=== PATIENT | male | born 1995 | race Caucasian/White ===

== ENCOUNTER 2018-03-28 22:19 | Emergency (ER) | payer OTHER ==
[2018-03-28 22:28] VITALS: BP 123/78; PULSE 71; TEMP 98.4; BMI 29.6
--- NOTE | 2018-03-28 22:31 | PDOC ---
History of Present Illness - General Chief Complaint: Chest Pain Stated Complaint: CHEST PAIN Time Seen by Provider: 03/28/18 22:31 - History of Present Illness Initial Comments: 03/29/18 00:22 Patient is a 23 year old male with no reported PMH who presents to the ED c/o 5 day h/o chest pain. Pain is sharp, starts in his L axilla, and sometimes radiates down his L arm. Pain is worse at night and is intermittently associated with shortness of breath. Denies nausea, lightheadedness, palpitation. No previous h/o similar pain. No previous cardiac evaluation. No familial early deaths from cardiac causes, no familial cardiac history. Patient denies abdominal pain, diarrhea/constipation, nausea/vomiting, dysuria/ hematuria, recent travel, sick contacts. NKDA Surgical: denies Social: no toxic habits PMD: Dr. Andrea Bassett M.D. Past History - Past Medical History Allergies/Adverse Reactions: Allergies Allergy/AdvReac Type Severity Reaction Status Date / Time No Known Allergies Allergy Verified 03/28/18 22:27 Home Medications: Ambulatory Orders Clotrimazole [Lotrimin AF] 24 gm TP BID #1 cream..g. 04/29/16 COPD: No - Suicide/Smoking/Psychosocial Hx Smoking History: Never smoked Have you smoked in the past 12 months: No Information on smoking cessation initiated: No Hx Alcohol Use: No Drug/Substance Use Hx: No Substance Use Type: None *Physical Exam - Vital Signs Last Vital Signs Temp Pulse Resp BP Pulse Ox 98.4 F 71 18 123/78 98 03/28/18 22:24 03/28/18 22:24 03/28/18 22:24 03/28/18 22:24 03/28/18 22:24 - Physical Exam General Appearance: Yes: Nourished, Appropriately Dressed HEENT: positive: Normal Voice, Hearing Grossly Normal Neck: positive: Trachea midline, Supple Respiratory/Chest: positive: Lungs Clear, Normal Breath Sounds Cardiovascular: positive: S1, S2. negative: Edema, JVD Gastrointestinal/Abdominal: positive: Normal Bowel Sounds, Soft Musculoskeletal: negative: CVA Tenderness (R), CVA Tenderness (L) Extremity: positive: Normal Capillary Refill, Normal Inspection Integumentary: positive: Normal Color, Dry, Warm ED Treatment Course - LABORATORY CBC & Chemistry Diagram: 03/28/18 23:00 03/28/18 23:00 Medical Decision Making - Medical Decision Making 03/29/18 00:25 23 year old male with chest pain. EKG significant for diffuse epsilon waves -- possibly suggestive of AVRD . No other concerning findings including dagger Q waves, QT prolongation, ST elevations in V1-V3 Will obtain basic labs, cardiac profile. Reassess. 03/29/18 00:47 Troponin (-) x1. Normal Ca+ Will discharge home with return precautions and cardiology referral. *DC/Admit/Observation/Transfer Diagnosis at time of Disposition: Chest pain - Discharge Dispostion Disposition: HOME Condition at time of disposition: Good Decision to Admit order: No - Referrals Referrals: Andrea Bassett MD [Primary Care Provider] - Conrad Richardson MD [Staff Physician] - - Patient Instructions Printed Discharge Instructions: DI for Atypical Chest Pain Additional Instructions: You were evaluated for chest pain. Your labs showed no concerning findings. At this time you are safe for discharge. Your EKG which shows your heart's rhythm, showed some changes that should be evaluated by a tire vulcanizer. We have provided a referral. Please make an appointment for evaluation. Please also follow up with your primary care doctor , Dr. Bassett, in the next 2 days. Return to the Emergency Department for any new/worsening/concerning symptoms. - Post Discharge Activity
[2018-03-28 23:18] LABS: BASO % 0.7 % (0-2.0); HEMATOCRIT 45.6 % (35.4-49); HEMOGLOBIN 15.5 GM/dL (11.7-16.9); LYMPH % 31.5 % (8-40); MCH 29.4 pg (25.7-33.7); MCHC 33.9 g/dl (32.0-35.9); MEAN CELL VOLUME 86.7 fl (80-96); MEAN PLT VOLUME 10.1 fl (7.5-11.1); MONO % 6.9 % (3.8-10.2); NEUT % 59.9 % (42.8-82.8); PLATELET COUNT 252 K/MM3 (134-434); RBC 5.26 M/mm3 (4.00-5.60); RDW 13.3 % (11.9-15.9); WHITE BLOOD COUNT 7.5 K/mm3 (4.0-10.0)
[2018-03-29 00:17] LABS: ALBUMIN 3.7 g/dl (3.4-5.0); ALK PHOS 94 U/L (45-117); ANION GAP 7 MMOL/L (8-16); BILIRUBIN,TOTAL 0.3 mg/dL (0.2-1); BLOOD UREA NITROGEN 12 mg/dL (7-18); CALCIUM 8.5 mg/dL (8.5-10.1); CHLORIDE 106 mmol/L (98-107); CO2 28 mmol/L (21-32); CREATININE 1.3 mg/dL (0.55-1.3); GLUCOSE,RANDOM 74 mg/dL (74-106); N-TERMINAL BNP 7.7 pg/ml (5-125); POTASSIUM 3.6 mmol/L (3.5-5.1); SGOT/AST 29 U/L (15-37); SGPT/ALT 47 U/L (13-61); SODIUM 140 mmol/L (136-145); TOT PROT 7.1 g/dl (6.4-8.2)
--- NOTE | 2018-03-29 00:31 | PDOC ---
Attending Attestation - Resident Resident Name: Janell Moody - ED Attending Attestation I have performed the following: I have examined & evaluated the patient, The case was reviewed & discussed with the resident, I agree w/resident's findings & plan, Exceptions are as noted - HPI HPI: 03/29/18 00:28 23 M with no PMH presents to ED with intermittent L sided chest pain that began 4 days ago. Pt states the pain is in his L axilla and radiates down his L arm. Occasionally experiences SOB but denies it at the moment. No F/C. No recent travel/immobilization. No leg swelling. No smoking history or other drugs. No FH of early AL. - Physicial Exam PE: 03/29/18 00:30 GENERAL: Awake, alert, and fully oriented, in no acute distress. HEAD: No signs of trauma EYES: PERRLA, EOMI, sclera anicteric, conjunctiva clear ENT: Auricles normal inspection, hearing grossly normal, nares patent, oropharynx clear without exudates. Moist mucosa NECK: Nontender, no stepoffs, Normal ROM, supple, no lymphadenopathy, JVD, or masses LUNGS: Breath sounds equal, clear to auscultation bilaterally. No wheezes, and no crackles HEART: Regular rate and rhythm, normal S1 and S2, no murmurs, rubs or gallops ABDOMEN: Soft, nontender, normoactive bowel sounds. No guarding, no rebound. No masses EXTREMITIES: Normal range of motion, no edema. No clubbing or cyanosis. No cords, erythema, or tenderness NEUROLOGICAL: Cranial nerves II through XII intact. 5/5 strength and sensation in all extremities, Normal speech, normal gait, normal cerebellar function SKIN: Warm, Dry, normal turgor, no rashes or lesions noted. - Medical Decision Making 03/29/18 00:30 23 M with intermittent L axilla pain, currently asymptomatic. EKG nonischemic, though it shows ?dunham wave. Pt with normal temp. Will check for hypercalcemia. Also r/o ACS with single trop, as symptoms have been present for 4 days. Pt with no PE risk factors, PERC score 0. - Labs, trop - CXR Labs wnl, trop negative CXR clear on my read Pt reassessed - continues to be asymptomatic. Pt informed of EKG abnormality and understands need to f/u with cardiology. Pt is well appearing, with normal vitals. Clinically stable for DC at this time. I discussed the physical exam findings, ancillary test results and final diagnoses with the patient. I answered all of the patient's questions. The patient was satisfied with the care received and felt comfortable with the discharge plan and treatment plan. The patient agrees to follow up with the primary care physician within 24-72 hours.
--- NOTE | 2018-03-29 11:27 | EKG ---
Test Reason : Blood Pressure : / mmHG Vent. Rate : 067 BPM Atrial Rate : 067 BPM P-R Int : 132 ms QRS Dur : 090 ms QT Int : 378 ms P-R-T Axes : 048 048 042 degrees QTc Int : 399 ms NORMAL SINUS RHYTHM NORMAL ECG NO PREVIOUS ECGS AVAILABLE Confirmed by CAROLINA SHAH, MANUEL ([id number]) on 03/29/2018 11:27:14 AM Referred By: Confirmed By:MANUEL FIGUEROA MD
== END 2018-03-29 01:00 | disposition home or self-care (01) ==
LOC: JER 22:19
DX: R07.9 Chest pain, unspecified (principal)
CPT/HCPCS: 36415; 71045-TC-FY; 80053; 82550; 82553; 83880; 84484; 85025; 93005; 93010; 99281-25

== ENCOUNTER 2019-01-12 01:44 | Emergency (ER) | payer OTHER ==
[2019-01-12 02:12] VITALS: BMI 29.5
--- NOTE | 2019-01-12 02:49 | PDOC ---
History of Present Illness - General Chief Complaint: Rectal Bleed Stated Complaint: BLOOD IN STOOL Time Seen by Provider: 01/12/19 02:45 - History of Present Illness Initial Comments: 01/12/19 02:48 23 yo M with no significant pmh who p/w rectal bleeding, and RLQ abdominal pain. Patient reports 5 days of intermittent dark red blood with bowel movements. Denies clotting. States that today blood has been larger quantities, as opposed to drops of blood over past 3-4 days.Also endorses crampy, dull, RLQ pain, with no identifiable triggers or alleviators, lasting for seconds and resolving spontaneously. Shanika h/o similar presentation. Denies rectal trauma. Denies change in diet, or recent travel. Does not f/w GI. Patient denies ABARCA, vision change, palpitations, cough, wheezing, orthopena, PND , leg swelling/pain, N/V, F,C, CP, SOB, urinary complaints, hematuria, diarrhea , constipation, lightheadedness, weakness, sensory changes. PMHx: as noted above. Denies medication or chronic NSAID use. Surgical: Denies abdominal surgery, colonoscopy, endoscopy FHX: Denies h/o autoimmune disorders or bowel disease ROS: as noted SHx: Denies Etoh, IVDA, tobacco use Allergies: NKDA Past History - Past Medical History Allergies/Adverse Reactions: Allergies Allergy/AdvReac Type Severity Reaction Status Date / Time No Known Allergies Allergy Verified 01/12/19 02:10 Home Medications: Ambulatory Orders levoFLOXacin [Levaquin -] 500 mg PO DAILY #6 tablet 01/12/19 COPD: No - Suicide/Smoking/Psychosocial Hx Smoking History: Never smoked Have you smoked in the past 12 months: No Information on smoking cessation initiated: No Hx Alcohol Use: No Drug/Substance Use Hx: No Substance Use Type: None Review of Systems - Review of Systems Comments:: 01/12/19 02:48 GENERAL/CONSTITUTIONAL: No fever or chills. No weakness. HEAD, EYES, EARS, NOSE AND THROAT: No change in vision. No ear pain or discharge. No sore throat. CARDIOVASCULAR: No chest pain or shortness of breath RESPIRATORY: No cough, wheezing, or hemoptysis. GASTROINTESTINAL: + RLQ abdominal pain and rectal bleed. No nausea, vomiting, diarrhea or constipation. GENITOURINARY: No dysuria, frequency, or change in urination. MUSCULOSKELETAL: No joint or muscle swelling or pain. No neck or back pain. SKIN: No rash NEUROLOGIC: No headache, vertigo, loss of consciousness, or change in strength/ sensation. ENDOCRINE: No increased thirst. No abnormal weight change HEMATOLOGIC/LYMPHATIC: No anemia, easy bleeding, or history of blood clots. ALLERGIC/IMMUNOLOGIC: No hives or skin allergy. *Physical Exam - Vital Signs Last Vital Signs Temp Pulse Resp BP Pulse Ox 100.7 F H 87 20 143/77 99 01/12/19 01:50 01/12/19 01:50 01/12/19 01:50 01/12/19 01:50 01/12/19 01:50 - Physical Exam Comments: 01/12/19 02:48 GENERAL: Awake, alert, and fully oriented, in no acute distress HEAD: No signs of trauma, normocephalic, atraumatic EYES: PERRLA, EOMI, sclera anicteric, conjunctiva clear ENT: Auricles normal inspection, hearing grossly normal, nares patent, oropharynx clear without exudates. Moist mucosa NECK: Normal ROM, supple, no lymphadenopathy, JVD, or masses LUNGS: No distress, speaks full sentences, clear to auscultation bilaterally HEART: Regular rate and rhythm, normal S1 and S2, no murmurs, rubs or gallops, peripheral pulses normal and equal bilaterally. ABDOMEN: Soft, nontender, normoactive bowel sounds. No guarding, no rebound. No masses RECTAL:Absent gross blood per rectum, hemorrhoids, fissures, prolapse. + Brown stool, non compacted rectal vault. EXTREMITIES : Normal inspection, Normal range of motion, no edema. No clubbing or cyanosis. NEUROLOGICAL: Cranial nerves II through XII grossly intact. Normal speech, normal gait, no focal sensorimotor deficits SKIN: Warm, Dry, normal turgor, no rashes or lesions noted ED Treatment Course - LABORATORY CBC & Chemistry Diagram: 01/12/19 03:14 01/12/19 03:14 Medical Decision Making - Medical Decision Making 01/12/19 03:03 23 yo M with no significant pmh who p/w rectal bleeding, and RLQ adbominal pain x 5 days. Oral temp 100.7, vitals otherwise wnl, A&OX3. Physical exam unremarkable. Will consider UGI vs. LGI bleed, colitis, diverticulosis, constipation, infectious or autoimmune process. ED Course: 01/12/19 06:22 CT AP: Unremarkable. Thickened bladder wall, correlate for cystitis. CBC,CMP: Unremarkable FOBT: Negative UA: Negative Levaquin 500 mg Levaquin sent to pharmacy *DC/Admit/Observation/Transfer Diagnosis at time of Disposition: Cystitis - Discharge Dispostion Condition at time of disposition: Stable Decision to Admit order: No - Prescriptions Prescriptions: levoFLOXacin [Levaquin -] 500 mg PO DAILY #6 tablet - Referrals Referrals: Andrea Bassett MD [Primary Care Provider] - Antonio Browning MD [Staff Physician] - - Patient Instructions Printed Discharge Instructions: DI for Acute Cystitis Additional Instructions: Please return to the emergency department with any new or worsening symptoms or concerns. Please follow up with your primary care physician and square shear operator within 72 hours. - Post Discharge Activity
[2019-01-12 03:48] LABS: BASO % 0.7 % (0-2.0); EOS % 1.3 % (0-4.5); HEMATOCRIT 48.9 % (35.4-49); LYMPH % 32.5 % (8-40); MCH 30.1 pg (25.7-33.7); MCHC 34.8 g/dl (32.0-35.9); MEAN CELL VOLUME 86.5 fl (80-96); MEAN PLT VOLUME 9.8 fl (7.5-11.1); MONO % 4.8 % (3.8-10.2); NEUT % 60.7 % (42.8-82.8); PLATELET COUNT 307 K/MM3 (134-434); RBC 5.65 M/mm3 (4.00-5.60); RDW 12.6 % (11.9-15.9); WHITE BLOOD COUNT 10.2 K/mm3 (4.0-10.0)
[2019-01-12 04:18] LABS: BILIRUBIN,TOTAL 0.3 mg/dL (0.2-1); BLOOD UREA NITROGEN 9.4 mg/dL (7-18); CALCIUM 9.4 mg/dL (8.5-10.1); CREATININE 0.9 mg/dL (0.55-1.3); POTASSIUM 3.7 mmol/L (3.5-5.1); TOT PROT 7.4 g/dl (6.4-8.2)
[2019-01-12 04:26] LABS: INR 0.92 (0.83-1.09); PROTHROMBIN TIME (PATIENT) 10.9 SEC (9.7-13.0)
[2019-01-12] MEDS ORDERED: SODIUM CHLORIDE 0.9% 500 ML INFUS.BAG IV ONE (04:26)
[2019-01-12] MEDS ORDERED: SODIUM CHLORIDE 1,000 ML IV STA (04:28)
--- NOTE | 2019-01-12 05:23 | PDOC ---
Documentation entered by Criselda Bran SCRIBE, acting as scribe for Debra Larson MD. Debra Larson MD: This documentation has been prepared by the kayleeibe, Criselda Bran SCRIBE, under my direction and personally reviewed by me in its entirety. I confirm that the documentation accurately reflects all work, treatment, procedures, and medical decision making performed by me. Attending Attestation - Resident Resident Name: Clay Bunch - ED Attending Attestation I have performed the following: I have examined & evaluated the patient, The case was reviewed & discussed with the resident, I agree w/resident's findings & plan - HPI HPI: 01/12/19 06:22 Pt comes with lower abdomen pain. He has no PMHx. States that he has pain in the lower abd and blood in his stool. He states that the blood started a few days ago and has been getting worse. Pt has no prob with consitpation or diarrhea and he has normal appetite. Pt has no flank pain. - Physicial Exam PE: 01/12/19 02:58 GENERAL: Awake, alert and oriented. The patient is in no acute distress. ENT: Ears normal, nares patent, oropharynx clear without exudates. Moist mucous membranes. NECK: Normal range of motion, supple, no nuchal rigidity LUNGS: Breath sounds equal, clear to auscultation bilaterally. No wheezes, and no crackles. HEART: Regular rate and rhythm, normal S1 and S2 without murmur, rub or gallop. ABDOMEN: Soft, suprapubic and LLQ tender, normoactive bowel sounds. No guarding , no rebound. No masses palpable. EXTREMITIES: Normal range of motion, no edema. NEUROLOGICAL: Answering all questions. Cranial nerves II through XII grossly intact. Normal speech. No focal neurological deficits. SKIN: Warm, Dry, normal turgor, no rashes or lesions noted. 01/12/19 04:27 Pt appears comfotable. Pt states that for the past 2 weeks he has had bilat throat pain. - Medical Decision Making 01/12/19 04:20 Pt comes with rectal bleed. But he states that it started with a couple drops a few days ago, now it is more and more. Pt has no blood on his stool guaiac however. He complains of Dysuria. He has UTI symptoms. Pt also reports sore throat. Pt states that he has had sore throat x 2 weeks. 01/12/19 05:19 01/12/19 05:[address] Group [address]rep negative. CT scan of the abd/pelvis pending. 01/12/19 05:22 01/12/19 05:23 01/12/19 06:20 Patient Name: ALBER ZULETA THIS IS A PRELIMINARY REPORT FROM [facility] DATE OF SERVICE: 2019-01-12 05:39:38 IMAGES: [id number] EXAM: CT ABDOMEN AND PELVIS WITH CONTRAST Thickened bladder wall, correlate clinically for cystitis. No bowel obstruction, colitis, free fluid or free air. Normal appendix. Unremarkable pancreas, kidneys and gallbladder. Minimal splenomegaly. 01/12/19 20:20 Pt has cystitis; he will be treated with levaquin and he will be asked to follow with PMD.
[2019-01-12 05:36] LABS: PH,URINE 6.5 (5.0-8.0); URINE APPEARANCE CLEAR; URINE BILIRUBIN NEGATIVE (NEGATIVE); URINE COLOR YELLOW; URINE GLUCOSE (UA) NEGATIVE (NEGATIVE); URINE KETONE NEGATIVE (NEGATIVE); URINE LEUK ESTERASE NEGATIVE (NEGATIVE); URINE NITRITE NEGATIVE (NEGATIVE); URINE PROTEIN NEGATIVE (NEGATIVE); URINE UROBILINOGEN 0.2 mg/dL (0.2-1.0)
[2019-01-12 06:03] VITALS: BP 121/63; PULSE 60
[2019-01-12 06:18] VITALS: TEMP 98.2
== END 2019-01-12 06:29 | disposition home or self-care (01) ==
LOC: JER 01:44
PROC: 3E0337Z Introduction of Electrolytic and Water Balance Substance into Peripheral Vein, Percutaneous Approach (ICD-10-PCS; principal; 2019-01-12)
DX: N30.00 Acute cystitis without hematuria (principal)
CPT/HCPCS: 36415; 74177-TC; 80053; 81003; 82272; 85025; 85610; 87040; 87070; 87880; 96360; 99282-25; J7030